=== PATIENT | male | born 1970 | race Caucasian/White ===

== ENCOUNTER → 2022-09-21 | Outpatient (CLI) | payer OTHER ==
[~2022-09-21] MED LIST: CLARITIN10 MG PO; MEDROL DOSEPAK4 MG PO; PROVENTIL0.09 MG/AC IH
== END | disposition home or self-care (01) ==
LOC: MRI 09:00
PROVIDERS: ATTEND Psychiatry & Neurology Neurology
DX: M19.012 Primary osteoarthritis, left shoulder (principal); M75.122 Complete rotator cuff tear or rupture of left shoulder, not specified as traumatic; R60.9 Edema, unspecified; M47.812 Spondylosis without myelopathy or radiculopathy, cervical region

== ENCOUNTER 2022-11-10 21:33 | Emergency (ER) | payer OTHER ==
[~2022-11-10] VITALS: Ht 182.8 cm; Wt 68.0 kg
[2022-11-10 22:02] VITALS: BP 132/68
== END 2022-11-10 22:45 | disposition home or self-care (01) ==
LOC: ED 21:33
DX: S46.912A Strain of unspecified muscle, fascia and tendon at shoulder and upper arm level, left arm, initial encounter (principal); M54.2 Cervicalgia; M54.6 Pain in thoracic spine; Z98.890 Other specified postprocedural states; X50.0XXA Overexertion from strenuous movement or load, initial encounter; Y93.89 Activity, other specified; Y92.89 Other specified places as the place of occurrence of the external cause; Y99.0 Civilian activity done for income or pay